=== PATIENT | male | born 1985 | race Caucasian/White ===

== ENCOUNTER 2020-01-28 12:33 | Emergency (ER) | payer OTHER, SELFPAY ==
[2020-01-28] MEDS ORDERED: KETOROLAC TROMETHAMINE 30MG/ML ONE (12:56)
== END 2020-01-28 14:29 | disposition home or self-care (01) ==
LOC: EDH 12:33
DX: S60.022A Contusion of left index finger without damage to nail, initial encounter (principal); Z72.0 Tobacco use; W23.0XXA Caught, crushed, jammed, or pinched between moving objects, initial encounter; Y93.89 Activity, other specified; Y92.89 Other specified places as the place of occurrence of the external cause; Y99.8 Other external cause status
CPT/HCPCS: 96372; 99283; J1885